=== PATIENT | male | born 2005 | race African-American/Black ===

== ENCOUNTER 2025-08-01 09:07 | Emergency (ER) | payer MEDICAID, OTHER ==
[~2025-08-01] VITALS: Ht 175.3 cm; Wt 78.0 kg
[2025-08-01 09:30] VITALS: BP 98/71; PULSE 61; RESP 18; TEMP 98.1; O2SAT 100
[2025-08-01] MEDS: LIDOCAINE 1% 10 ML VIAL SQ ONE (11:08)
[2025-08-01] MEDS ORDERED: SULF-261 PO (12:23)
[2025-08-01] MEDS ORDERED: CEPH-558 PO (12:23)
== END 2025-08-01 12:40 | disposition home or self-care (01) ==
LOC: EMS 09:11
DX: L02.31 Cutaneous abscess of buttock (principal); F17.210 Nicotine dependence, cigarettes, uncomplicated
CPT/HCPCS: 99284; 10160; J3490

== ENCOUNTER 2025-10-18 19:28 | Emergency (ER) | payer OTHER ==
[~2025-10-18] VITALS: Ht 177.8 cm; Wt 78.6 kg
[~2025-10-18 19:28] MED LIST: CEPH-558 PO; SULF1TAB94 PO
[2025-10-18 20:07] VITALS: TEMP 98.2
[2025-10-18] MEDS ORDERED: IBUP-1492 PO (21:42)
[2025-10-18] MEDS: IBUPROFEN 600 MG TABLET PO ONE (21:44)
[2025-10-18 22:33] VITALS: BP 108/70; PULSE 73; RESP 16; O2SAT 99
== END 2025-10-18 22:46 | disposition home or self-care (01) ==
LOC: EMS 19:43
DX: S63.502A Unspecified sprain of left wrist, initial encounter (principal); F17.210 Nicotine dependence, cigarettes, uncomplicated; W22.8XXA Striking against or struck by other objects, initial encounter; Y93.89 Activity, other specified; Y92.89 Other specified places as the place of occurrence of the external cause; Y99.8 Other external cause status
CPT/HCPCS: 99283